=== PATIENT | female | born 1965 | race African-American/Black ===

== ENCOUNTER 2023-03-01 08:45 | Emergency (ER) | payer OTHER ==
[2023-03-01 08:52] VITALS: BMI 34.0
[2023-03-01] MEDS ORDERED: FAMOTIDINE 20 MG/50 ML IVPB 20 MG/50 ML MG IVPB ONE ×2 (10:53→11:05)
[2023-03-01] MEDS ORDERED: MAG HYDROX/AL HYDROX/SIMETH 30 ML UNIT-DOSE CUP PO ONE (10:53)
[2023-03-01] MEDS ORDERED: MAG HYDROX/AL HYDROX/SIMETH 30 ML UNIT-DOSE CUP ONE (11:05)
[2023-03-01 12:00] LABS: BASO % 0.4 % (0-2.0); EOS % 0.3 % (0-4.5); HEMATOCRIT 37.6 % (32.4-45.2); HEMOGLOBIN 11.6 GM/dL (10.7-15.3); MCHC 30.8 g/dl (32.0-36.0); MEAN CELL VOLUME 71.3 fl (80-96); MEAN PLT VOLUME 9.5 fl (7.5-11.1); NEUT % 74.3 % (42.8-82.8); PLATELET COUNT 265 10^3/uL (134-434); RBC 5.27 M/mm3 (3.60-5.2); RDW 16.4 % (11.6-15.6); WHITE BLOOD COUNT 12.5 K/mm3 (4.0-10.0)
[2023-03-01 12:07] LABS: INR 1.26 (0.83-1.09); PROTHROMBIN TIME (PATIENT) 14.6 SEC (9.7-13.0)
[2023-03-01 12:09] VITALS: BP 142/79; PULSE 75; RESP 20; TEMP 98.2
[2023-03-01 12:10] LABS: ACTIVATED PTT 32.9 SECONDS (25.2-36.5)
[2023-03-01 12:17] LABS: POTASSIUM 4.6 mmol/L (3.5-5.1)
[2023-03-01 12:20] LABS: BLOOD UREA NITROGEN 15.5 mg/dL (7-18); CALCIUM 9.6 mg/dL (8.5-10.1)
[2023-03-01 12:21] LABS: ALBUMIN 3.9 g/dl (3.4-5.0); MAGNESIUM 2.4 mg/dL (1.8-2.4)
[2023-03-01 12:24] LABS: ANISOCYTOSIS 2+; CREATININE 0.9 mg/dL (0.55-1.3); MACROCYTOSIS 0; OVALOCYTE 1+; TARGET CELLS 1+
[2023-03-01 12:25] LABS: BILIRUBIN,TOTAL 0.8 mg/dL (0.2-1); TOT PROT 7.9 g/dl (6.4-8.2)
== END 2023-03-01 15:07 | disposition home or self-care (01) ==
LOC: JER 08:45
PROC: 3E033GC Introduction of Other Therapeutic Substance into Peripheral Vein, Percutaneous Approach (ICD-10-PCS; principal; 2023-03-01)
DX: R07.89 Other chest pain (principal); R10.10 Upper abdominal pain, unspecified; R10.13 Epigastric pain; Z20.822 Contact with and (suspected) exposure to COVID-19
CPT/HCPCS: 0241U-QW; 36415; 71045-TC-FY; 80053; 83690; 83735; 84484; 85025; 85379; 85610; 85730; 93005; 93010; 99285-25